=== PATIENT | female | born 1965 | race Caucasian/White ===

== ENCOUNTER 2017-10-26 07:53 | Emergency (ER) | payer OTHER ==
[~2017-10-26] VITALS: Ht 172.7 cm; Wt 66.7 kg
[2017-10-26] MEDS ORDERED: ZOFRAN8 MG PO (11:27)
[2017-10-26] MEDS ORDERED: INTESTINEX680 M1 PO (11:27)
[2017-10-26] MEDS ORDERED: ZANTAC150 MG PO (11:27)
== END 2017-10-26 11:56 | disposition home or self-care (01) ==
LOC: ER 07:53
DX: R20.0 Anesthesia of skin (principal); F06.4 Anxiety disorder due to known physiological condition